=== PATIENT | male | born 1965 | race Caucasian/White ===

== ENCOUNTER 2020-02-13 13:15 | Emergency (ER) | payer SELFPAY ==
[~2020-02-13] VITALS: Ht 175.3 cm; Wt 125.0 kg
[~2020-02-13 13:15] MED LIST: BENADRYL25 MG PO; FLONASE NASAL S16 GM NS; PERCOCET 325 MG1 TA2 PO
[2020-02-13 13:23] VITALS: TEMP 98.4
[2020-02-13] MEDS ORDERED: MOTRIN 400400 MG/TAB PO (18:38)
[2020-02-13 18:50] VITALS: BP 130/60; PULSE 80
== END 2020-02-13 18:50 | disposition home or self-care (01) ==
LOC: COL.ER 13:15
DX: S43.015A Anterior dislocation of left humerus, initial encounter (principal); Z88.0 Allergy status to penicillin; W19.XXXA Unspecified fall, initial encounter
CPT/HCPCS: J0330; J1100; J2250; J2405; J2704; J3010

== ENCOUNTER 2020-02-17 10:20 | Emergency (ER) | payer SELFPAY ==
[~2020-02-17] VITALS: Ht 175.3 cm; Wt 125.0 kg
[~2020-02-17 10:20] MED LIST changes: +MOTRIN 400400 MG/TAB PO
[2020-02-17 10:23] VITALS: TEMP 98
[2020-02-17 12:22] VITALS: BP 126/70; PULSE 73
== END 2020-02-17 12:24 | disposition home or self-care (01) ==
LOC: COL.ER 10:20
DX: S43.015A Anterior dislocation of left humerus, initial encounter (principal); Z88.0 Allergy status to penicillin; X50.9XXA Other and unspecified overexertion or strenuous movements or postures, initial encounter
CPT/HCPCS: J1170; J2405; J2704; J3010; J7030

== ENCOUNTER 2020-02-27 14:32 | Emergency (ER) | payer SELFPAY ==
[~2020-02-27] VITALS: Ht 175.3 cm; Wt 120.5 kg
[2020-02-27 15:06] VITALS: TEMP 97.9
[2020-02-27 21:33] VITALS: BP 159/86; PULSE 96
== END 2020-02-27 21:33 | disposition home or self-care (01) ==
LOC: COL.ER 14:32
DX: S43.015A Anterior dislocation of left humerus, initial encounter (principal); Z88.0 Allergy status to penicillin; X58.XXXA Exposure to other specified factors, initial encounter
CPT/HCPCS: J0330; J1170; J2704; J3010

== ENCOUNTER → 2020-04-06 | Emergency (ER) | payer SELFPAY ==
[~2020-04-06] VITALS: Ht 175.3 cm; Wt 127.3 kg
[2020-04-06 12:44] VITALS: TEMP 97.8
[2020-04-06 17:08] VITALS: BP 142/94; PULSE 97
== END ==
LOC: COL.ER 12:32
DX: S43.005A Unspecified dislocation of left shoulder joint, initial encounter (principal); Z88.0 Allergy status to penicillin; Z88.6 Allergy status to analgesic agent; X50.1XXA Overexertion from prolonged static or awkward postures, initial encounter
CPT/HCPCS: J2250; J2704; J3010

== ENCOUNTER → 2020-05-01 | Outpatient (CLI) | payer BC | LOC: COL.RAD | DX: S46.112A Strain of muscle, fascia and tendon of long head of biceps, left arm, initial encounter (principal); M75.102 Unspecified rotator cuff tear or rupture of left shoulder, not specified as traumatic; M62.512 Muscle wasting and atrophy, not elsewhere classified, left shoulder; S43.005S Unspecified dislocation of left shoulder joint, sequela ==

== ENCOUNTER → 2022-03-17 | Day surgery (SDC) | payer BC ==
[2022-03-17] VITALS (10 sets, daily range): BP systolic 94–125; BP diastolic 68–98; PULSE 49–77; TEMP 98–98.3
[~2022-03-17] VITALS: Ht 175.4 cm; Wt 128.5 kg
[~2022-03-17] MED LIST changes: +ALEVE 220MG220 MG PO; +ASPIRIN 81M81 MG/TA2 PO; +B-D SAFETY GLID1 DE1 SQ; +BD ALCOHOL1 SWA MC; +CRESTOR20 MG PO; +FREESTYLE PREC1 EAC5 MC; +GLUCOPHAGE1000 MG PO; +GLUCOSE TEST ST1 DEV MC; +INSULIN AS100 UNIT/2 SQ; +LANCETS MC; +LEVEMIR100 U/ML SQ; +NORVASC 5MG5 MG/TAB PO; +PRINIVIL20 MG PO; +PRINIVIL40 MG PO; +TOPROL XL 50MG50 MG PO; +TOPROL XL100 MG PO
[2022-03-17 08:51] LABS: CALCIUM 9.4 mg/dL (8.4-10.2); CREATININE, serum 0.94 mg/dL (0.72-1.25); HEMATOCRIT 49.1 % (42.0-52.0); HEMOGLOBIN 15.9 g/dl (13.5-18.0); MEAN CELL VOLUME 94 fl (80.0-100.0); MEAN CORPUSCULAR HEMOGLOBIN 30 pg (27-31); MEAN CORPUSCULAR HGB CONC 32 g/dl (33.0-37.0); PLATELET COUNT 216 K/mm3 (130-400); POTASSIUM 4.2 mmol/L (3.5-4.5); RED BLOOD COUNT 5.23 M/mm3 (4.20-5.60); REDCELL DISTRIBUTION WIDTH-CV 12.9 % (11.5-14.5)
[2022-03-17 08:54] LABS: INR 1.1 (0.8-3.0); PARTIAL THROMBOPLASTIN TIME 37.5 SECONDS (26.0-37.0); PROTHROMBIN TIME 12.2 SECONDS (9.7-12.8)
--- NOTE | 2022-03-17 10:50 | NUR ---
PT BACK FROM DENTAL INSTRUCTOR. PT IS SLEEPY BUT AROUSES TO VOICE. VSS. RALF(SO) BEDSIDE. WATER GIVEN. PT INSTRUCTED TO NOT USE RIGHT WRIST. CALL LIGHT GIVEN AND INSTRUCTED TO CALL WITH ALL NEEDS.
--- NOTE | 2022-03-17 11:23 | NUR ---
PT HAVING INTERMITTENT TWITCH IN RIGHT SHOULDER. NO SWELLING OR PAIN. RIGHT RADIAL SITE C/D/I, NO SWELLING. CLAUDIA OREILLY FROM NURSING UNIT CLERK CALLED, SOILA OREILLY WITH CARDIOLOGY CALLED AND NOTIFIED. STATES SHE WILL DISCUSS WITH DR. CHRISTIANSON AND CALL BACK.
--- NOTE | 2022-03-17 14:03 | NUR ---
TR BAND REMOVED. SITE C/D. BAND AID APPLIED. IV AND TELE DC'D. PT GETTING DRESSED WITH HELP OF RALF WATTS. AWAITNG DISCHARGE PAPERWORK FROM .
--- NOTE | 2022-03-17 15:03 | NUR ---
DISCHARGE INSTRUCTIONS DISCUSSED WITH PT AND . PT REFUSING WHEELCAIR. NANDO OREILLY ACCOMPAINED PT DOWN TO CAR FOR DISCHARGE.
== END ==
LOC: COL.CAR 07:36
PROVIDERS: Internal Medicine Cardiovascular Disease
DX: I10 Essential (primary) hypertension (principal); E78.2 Mixed hyperlipidemia; I47.1 Supraventricular tachycardia; Z87.891 Personal history of nicotine dependence
CPT/HCPCS: C1769; J1644; J2250; J3010; J3475; Q9967